=== PATIENT | female | born 1965 ===

== ENCOUNTER 2021-07-19 14:37 | Emergency (ER) | payer OTHER, SELFPAY ==
--- NOTE | ~2021-07-19 | CT_ITS ---
EXAMINATION: CT GI BLEED ABDOMEN PELVIS WITHOUT AND WITH IV CONTRAST CLINICAL INFORMATION: Lower abdominal pain and bloody stool with clots COMPARISON: None. TECHNIQUE: Noncontrast and contrast-enhanced (late arterial and delayed venous phase) helical CT acquisitions of the abdomen and pelvis. Axial images are presented at 0.6 mm and 5 mm slice thickness. Coronal and sagittal reformatted images were generated at the technologist workstation. Intravenous contrast: 100 mL of Omnipaque 350. This CT examination was performed using dose optimization techniques as appropriate, variously including the following: *Automated exposure control *Adjustment of mA and/or kV according to patient size (this includes techniques or standardized protocols for targeted exams where dose is matched to indication/reason for exam; i.e. extremities or head) *Use of iterative reconstruction technique DLP: 2015 mGy-cm. FINDINGS: LUNG BASES: Unremarkable. LIVER, GALLBLADDER, AND BILIARY TREE: The liver has normal size and shape. Liver parenchyma has attenuation of 35-40 HU on the noncontrast images, which suggests presence of mild steatosis. No focal hepatic lesion. The gallbladder is surgically absent. No intrahepatic or extrahepatic bile duct dilatation. PANCREAS: Normal. No evidence of pancreatic mass, edema or ductal dilatation. SPLEEN: Normal. ADRENAL GLANDS: Normal. KIDNEYS AND URETERS: The kidneys have normal size, shape, and attenuation. No hydroureteronephrosis, urolithiasis or perinephric edema. BLADDER: Unremarkable. BOWEL AND PERITONEUM: No dilated loops of bowel. No evidence of active contrast extravasation into the lumen of the stomach, small bowel or colon. There is mild prominence of a rectal vein in the left lateral/posterolateral rectal wall. Internal hemorrhoids could be a source of bleeding. However, this CT imaging exam shows no active bleeding into the lumen of the rectum. No focal bowel wall thickening, mesenteric fat stranding or free fluid. The appendix is normal. No pneumoperitoneum. ABDOMINAL WALL: Prior umbilical hernia repair. LYMPH NODES: No pathologic sized lymph nodes in the abdomen or pelvis. No inguinal lymphadenopathy. VASCULATURE: Abdominal aorta is normal in caliber. Inferior vena cava is normal. PELVIC VISCERA: Leiomyomatous uterus has lobulated contour. There appears to be a small tubal ligation ring of the right adnexa. 1.7 cm follicle or simple cyst of the right ovary is almost certainly benign. No imaging follow-up is recommended. There are several small follicles or small cysts of the left ovary, largest 1.5 cm. No suspicious adnexal lesion. No pelvic free fluid. MUSCULOSKELETAL: Mild and moderate multilevel discovertebral degenerative changes of the lower thoracic spine. Facet arthropathy lumbar spine is worst bilaterally at L4-L5 and on the left at L5-S1. There is is 0.3 cm of degenerative anterolisthesis of L4 on L5. No suspicious bone lesions. CT/CT gi bleed abd pel wo/w con IMPRESSION: * No CT imaging evidence of an active upper or lower gastrointestinal bleed. * Mildly dilated rectal vein (internal hemorrhoid) of the left lateral/posterolateral rectal wall could be a source of bleeding. However, there is no visible contrast extravasation into the rectal lumen. * Leiomyomatous uterus.
[2021-07-19 15:47] VITALS: BP 123/70; PULSE 84; RESP 16; TEMP 36.6; O2SAT 97; BMI 35.5
[2021-07-19 16:18] LABS: Basophils Percent Auto 0.4 % (0-2); Eosinophils Absolute Auto 0.2 X10*3/uL (0.0-0.4); Hematocrit 37.6 % (37-47); Hemoglobin 11.9 g/dl (12.0-16.0); Imm Gran Abs Auto 0.02 X10*3/uL (0.00-0.03); Imm Gran Pct Auto 0.3 % (0.0-0.4); Lymphocytes Absolute Auto 2.4 X10*3/uL (1.2-4.9); MANUAL DIFF FLAG NO; Mean Corpuscular HGB Conc 31.6 g/dl (31.0-35.0); Mean Corpuscular Hemoglobin 26.5 pg (27.0-33.0); Mean Corpuscular Volume 83.7 fL (80-98); Mean Platelet Volume 9.5 fL (9.4-12.3); Monocytes Absolute Auto 0.5 X10*3/uL (0.1-1.2); Monocytes Percent Auto 7.8 % (2-11); Neutrophils Absolute Auto 3.7 X10*3/uL (2.0-8.3); Neutrophils Percent Auto 53.5 % (45-73); Platelet Count 268 X10*3/uL (160-400); Red Blood Count 4.49 X10*6/uL (4.20-5.50); Red Cell Distribution Width 15.3 % (11.0-16.0); White Blood Count 6.9 X10*3/uL (4.8-10.8)
--- NOTE | 2021-07-19 16:18 | ED_ITS ---
HPI - General Adult General Chief complaint: General Medical Stated complaint: RECTAL BLEEDING HEAVY Time Seen by Provider: 07/19/21 15:47 Source: patient Mode of arrival: ambulatory Limitations: no limitations History of Present Illness HPI narrative: 56 y/o female with history of asthma, GERD, history of multiple umbilical hernia repairs, hx tubal ligation, s/p cholecystectomy who presents with 2 weeks of bloody bowel movements. She reports no history of GI bleed in the past and she is not on anticogaulation. She has been having 2-3 maroon colored bloody stools each day. Today she had about 2 cups of liquid dark red stool with clots and she was dizzy. She had no episodes of dizziness in the last 2 weeks until today and the volume as not as much as today. She also started having lower abdominal pain and cramping today along with bloating and distention. No vomiting, nausea, fevers, rectal pain. No chest pain or SOB. MD complaint: bloody bowel movements Onset (ago): week(s) (2) Location: abdomen Radiation: non-radiation Severity: moderate Severity scale (1-10): 7 Quality: sharp Pain Consistency: intermittent Relieving factors: none Exacerbating factors: none Associated symptoms: denies other symptoms Treatments prior to arrival: none Related Data Previous Rx's Medication Instructions Recorded hydrocortisone 1 %-pramoxine 1 % 1 appl ME QID #10 g 07/19/21 rectal foam (Proctofoam HC) Allergies Allergy/AdvReac Type Severity Reaction Status Date / Time ciprofloxacin [From Cipro] Allergy Unknown Verified 07/19/21 15:54 Penicillins Allergy Unknown Verified 07/19/21 15:54 Review of Systems Review of Systems: Constitutional: No Fever, No Chills ENT/Mouth: No sore throat, No Rhinorrhea, No Swallowing Difficulty Cardiovascular: No Chest Pain, No SOB, No Orthopnea, No Edema Respiratory: No Cough, No Sputum, No Wheezing, No dyspnea Gastrointestinal: No Nausea, No Vomiting, No Diarrhea, + abdominal Pain, + Hem atochezia, No Melena Genitourinary: No Dysuria, No Urinary Frequency, No Hematuria Musculoskeletal: No joint pain, No Myalgias Skin: No Skin Lesions, No rash Neuro: No Weakness, No Numbness, + Dizziness, No Headache Psych: No Anxiety/Panic, No Depression Heme/Lymph: No Bruising, No Lymphadenopathy Endocrine: No Polyuria, No Polydipsia [facility] Past Medical History Medical History (Updated 07/19/21 @ 17:47 by MELINDA Au) Asthma Hemorrhoid Surgical History (Updated 07/19/21 @ 15:50 by Oneyda Damon RN) H/O hernia repair H/O tubal ligation Social History Social History Advance Directives: No Advance Directives Information Provided: No Physical Exam Vital Signs: Vital Signs: Last Vital Signs Temp 97.9 F 07/19/21 15:47 Pulse 84 07/19/21 15:47 Resp 16 07/19/21 15:47 BP 123/70 07/19/21 15:47 Pulse Ox 97 07/19/21 15:47 Body Mass Index 35.5 Appearance: Alert. Oriented X3. No acute distress. Eyes: Pupils equal, round and reactive to light. ENT: Pharynx normal. Neck: Normal inspection. Neck supple. CVS: Normal heart rate and rhythm. Pulses normal. Respiratory: No respiratory distress. Breath sounds normal. Abdomen: Obese, Soft with mild lower abdominal tenderness to deep palpation. +BS x4 Skin: Skin warm and dry. Normal skin color. Normal skin turgor. No rashes. Extremities: No lower extremity edema. Neuro: Oriented X 3. No motor deficit. No sensory deficit. Course Course Course Narrative: 56 y/o female presenting with LGIB and dizziness, no other signs or symptoms of acute blood loss anemia. Will check CBC, coags, LFTs and get CT abd/pelvis GI bleed protocol to look for active GI bleeding given her large volume bloody BM was this afternoon. Reevaluation(s) Reevaluation #1: Crit is 37. No active bleeding in the 3 hours the patient has b een in the ED. VS are stable, not tachycardic. Reevaluation #2: CT showing no active GI bleed. Prominant internal hemorrhoid likely the source. Counseled on results and management. Will start proctofoam and have her f/u with GI. Stable for d/c home. Medical Decision Making Lab Data Result diagrams: 07/19/21 16:13 07/19/21 16:13 Labs: Lab Results 07/19/21 07/19/21 07/19/21 Range/Units 16:13 16:13 16:13 WBC 6.9 (4.8-10.8) X10*3/uL RBC 4.49 (4.20-5.50) X10*6/uL Hgb 11.9 L (12.0-16.0) g/dl Hct 37.6 (37-47) % MCV 83.7 (80-98) fL MCH 26.5 L (27.0-33.0) pg MCHC 31.6 (31.0-35.0) g/dl RDW 15.3 (11.0-16.0) % Plt Count 268 (160-400) X10*3/uL MPV 9.5 (9.4-12.3) fL Immature Gran % (Auto) 0.3 (0.0-0.4) % Neut % (Auto) 53.5 (45-73) % Lymph % (Auto) 35.0 (20-40) % [place] % (Auto) 7.8 (2-11) % Eos % (Auto) 3.0 (0-4) % Baso % (Auto) 0.4 (0-2) % Lymph # (Auto) 2.4 (1.2-4.9) X10*3/uL [place] # (Auto) 0.5 (0.1-1.2) X10*3/uL Eos # (Auto) 0.2 (0.0-0.4) X10*3/uL Baso # (Auto) 0.0 (0.0-0.2) X10*3/uL Abs Immat Gran (auto) 0.02 (0.00-0.03) X10*3/uL Absolute Neuts (auto) 3.7 (2.0-8.3) X10*3/uL Absolute Nucleated RBC 0.000 (0.0-0.012) X10*3/uL Nucleated RBC % (auto) 0.0 (0.0-0.2) /100WBC PT 11.8 (9.9-13.0) SEC INR 1.0 (0.9-1.1) APTT 32.3 (24.1-38.0) SEC Sodium 138 (135-145) mmol/L Potassium 4.1 (3.3-5.1) mmol/L Chloride 106 (96-108) mmol/L Carbon Dioxide 27 (22-29) mmol/L Anion Gap 9 L (12-20) BUN 11 (9-16) mg/dL Creatinine 1.23 (0.5-1.4) mg/dL Estim Creat Clear Calc 62.3 Estimated GFR 46 Random Glucose 100 (60-115) mg/dL Calcium 8.9 (8.4-10.2) mg/dL Magnesium 2.0 (1.6-2.6) mg/dL Total Bilirubin 0.2 (0.0-1.0) mg/dL Direct Bilirubin < 0.2 (0.0-0.5) mg/dL AST 16 (5-31) U/L ALT 16 (0-31) U/L Alkaline Phosphatase 72 (39-117) U/L Total Protein 6.0 L (6.5-8.0) g/dL Albumin 3.7 (3.5-5.0) g/dL Stool Occult Blood (NEGATIVE) Blood Type Antibody Screen 07/19/21 07/19/21 Range/Units 16:40 16:40 WBC (4.8-10.8) X10*3/uL RBC (4.20-5.50) X10*6/uL Hgb (12.0-16.0) g/dl Hct (37-47) % MCV (80-98) fL MCH (27.0-33.0) pg MCHC (31.0-35.0) g/dl RDW (11.0-16.0) % Plt Count (160-400) X10*3/uL MPV (9.4-12.3) fL Immature Gran % (Auto) (0.0-0.4) % Neut % (Auto) (45-73) % Lymph % (Auto) (20-40) % [place] % (Auto) (2-11) % Eos % (Auto) (0-4) % Baso % (Auto) (0-2) % Lymph # (Auto) (1.2-4.9) X10*3/uL [place] # (Auto) (0.1-1.2) X10*3/uL Eos # (Auto) (0.0-0.4) X10*3/uL Baso # (Auto) (0.0-0.2) X10*3/uL Abs Immat Gran (auto) (0.00-0.03) X10*3/uL Absolute Neuts (auto) (2.0-8.3) X10*3/uL Absolute Nucleated RBC (0.0-0.012) X10*3/uL Nucleated RBC % (auto) (0.0-0.2) /100WBC PT (9.9-13.0) SEC INR (0.9-1.1) APTT (24.1-38.0) SEC Sodium (135-145) mmol/L Potassium (3.3-5.1) mmol/L Chloride (96-108) mmol/L Carbon Dioxide (22-29) mmol/L Anion Gap (12-20) BUN (9-16) mg/dL Creatinine (0.5-1.4) mg/dL Estim Creat Clear Calc Estimated GFR Random Glucose (60-115) mg/dL Calcium (8.4-10.2) mg/dL Magnesium (1.6-2.6) mg/dL Total Bilirubin (0.0-1.0) mg/dL Direct Bilirubin (0.0-0.5) mg/dL AST (5-31) U/L ALT (0-31) U/L Alkaline Phosphatase (39-117) U/L Total Protein (6.5-8.0) g/dL Albumin (3.5-5.0) g/dL Stool Occult Blood POSITIVE (NEGATIVE) Blood Type O Positive Antibody Screen NEGATIVE Discharge Plan Discharge Clinical Impression: Gastrointestinal bleeding, lower, Hemorrhoids Patient Disposition: Home, Self-Care Instructions: Hydrocortisone (Into the rectum), Gastrointestinal Bleeding (ED) Additional Instructions: Your blood counts are stable. Your CT scan did not show any active bleeding there was prominence of a rectal hemorrhoid which is likely the source of your bleeding. Recommend using the prescribed rectal suppositories as directed to help treat this. Increase your fluid intake. Recommend colace stool softners to keep your stool very soft. Continue high fiber diet. Follow up with your GI doctor next week (or you can call ours, name and number listed below) If you develop new or worsening symptoms call 911 or come back to the ER for further evaluation. Prescriptions: New Proctofoam HC 1-1 % foam 1 appl ME QID Qty: 10 RF: 1 Referrals: Sumit Summers [Physician] - 2 days (LGIB) Stand Alone Forms: Work/School Release
[2021-07-19 16:24] LABS: Prothrombin Time 11.8 SEC (9.9-13.0)
[2021-07-19 16:27] LABS: Partial Thromboplastin Time 32.3 SEC (24.1-38.0)
[2021-07-19 16:34] LABS: Alanine Aminotransferase 16 U/L (0-31); Albumin Level 3.7 g/dL (3.5-5.0); Alkaline Phosphatase 72 U/L (39-117); Anion Gap 9 (12-20); Aspartate Amino Transferase 16 U/L (5-31); Bilirubin Direct < 0.2 mg/dL (0.0-0.5); Bilirubin Total 0.2 mg/dL (0.0-1.0); Blood Urea Nitrogen 11 mg/dL (9-16); Calcium 8.9 mg/dL (8.4-10.2); Carbon Dioxide 27 mmol/L (22-29); Chloride 106 mmol/L (96-108); Creatinine Clr Calc Pharmacy 62.3; Estimated Glomerular Filt Rate 46; Glucose Random 100 mg/dL (60-115); Potassium 4.1 mmol/L (3.3-5.1); Sodium 138 mmol/L (135-145)
[2021-07-19 16:47] LABS: OBS Int Ctl Valid YES; OBS1 POSITIVE (NEGATIVE)
[2021-07-19] MEDS: iohexoL 350 MG/ML 100 ML INFUS..BTL IV (17:03)
== END 2021-07-19 18:00 | disposition home or self-care (01) ==
PROVIDERS: Physician Assistant; Emergency Provider Emergency Medicine
DX: K92.2 Gastrointestinal hemorrhage, unspecified (principal); K64.9 Unspecified hemorrhoids; R10.30 Lower abdominal pain, unspecified; R42 Dizziness and giddiness; Z79.899 Other long term (current) drug therapy
CPT/HCPCS: 36415; 74178; 80048; 80076; 82272; 83735; 85025; 85610; 85730; 86850; 86900; 86901; 99284; Q9967

== ENCOUNTER 2022-01-27 16:50 | Emergency (ER) | payer OTHER, SELFPAY ==
[2022-01-27 17:31] VITALS: BP 132/71; PULSE 97; RESP 18; TEMP 36.8; O2SAT 97; BMI 35.2
--- NOTE | 2022-01-27 17:35 | ED_ITS ---
HPI - General Adult General Chief complaint: Abdominal Pain <MELINDA Escudero - Last Filed: 01/28/22 08:13> Stated complaint: abd pain/diarrhea/vomiting <MELINDA Escudero - Last Filed: 01/28/22 08:13> Time Seen by Provider: 01/27/22 17:34 <MELINDA Escudero - Last Filed: 01/28/22 08:13> Related Data Home medications: Previous Rx's Medication Instructions Recorded hydrocortisone 1 %-pramoxine 1 % 1 appl OR QID #10 g 07/19/21 rectal foam (Proctofoam HC) hydrocortisone 1 %-pramoxine 1 % 1 appl OR QID #10 g 07/19/21 rectal foam (Proctofoam HC) loperamide 2 mg capsule (Imodium 2 mg PO Q6H PRN #10 cap 01/27/22 A-D) metronidazole 500 mg tablet 500 mg PO TID 7 Days #21 tab 01/27/22 ondansetron 4 mg disintegrating 4 mg PO Q6-8H PRN #7 tab 01/27/22 tablet <MELINDA Escudero - Last Filed: 01/28/22 08:13> Allergies/adverse reactions: Allergies Allergy/AdvReac Type Severity Reaction Status Date / Time ciprofloxacin [From Cipro] Allergy Unknown Verified 07/19/21 15:54 Penicillins Allergy Unknown Verified 07/19/21 15:54 <MELINDA Escudero - Last Filed: 01/28/22 08:13> [facility] Past Medical History Medical History: Medical History Asthma Hemorrhoid <MELINDA Escudero - Last Filed: 01/28/22 08:13> Surgical History: Surgical History H/O hernia repair H/O tubal ligation <MELINDA Escudero - Last Filed: 01/28/22 08:13> Social History Social History: Social History Advance Directives: No Advance Directives Information Provided: No Patient : No <MELINDA Escudero - Last Filed: 01/28/22 08:13> Physical Exam ED Vital Signs: Vital Signs - 24 hr 01/27/22 17:31 Temperature 98.2 F Pulse Rate 97 Respiratory Rate 18 Blood Pressure 132/71 Pulse Oximetry 97 BMI result Body Mass Index 35.2 <MELINDA Escudero - Last Filed: 01/28/22 08:13> Course Course Course Narrative: Rapid medical screening. Patient presented for abdominal pain and diarrhea that is watery. 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 labs, stool culture, covid, and influenza ordered. patient is well appearing <MELINDA Escudero - Last Filed: 01/28/22 08:13> Medical Decision Making Lab Data Result diagrams: : 01/27/22 17:49 01/27/22 17:49 <MELINDA Escudero - Last Filed: 01/28/22 08:13> Labs: Lab Results 01/27/22 01/27/22 01/27/22 Range/Units 17:49 17:49 17:49 WBC 10.3 (4.8-10.8) X10*3/uL RBC 5.05 (4.20-5.50) X10*6/uL Hgb 14.3 (12.0-16.0) g/dl Hct 43.8 (37.0-47.0) % MCV 86.7 (80.0-98.0) fL MCH 28.3 (27.0-33.0) pg MCHC 32.6 (31.0-35.0) g/dl RDW 14.8 (11.0-16.0) % Plt Count 298 (160-400) X10*3/uL MPV 9.5 (9.4-12.3) fL Immature Gran % (Auto) 0.2 (0.0-0.4) % Neut % (Auto) 49.0 (45-73) % Lymph % (Auto) 24.1 (20-40) % [place] % (Auto) 6.6 (2-11) % Eos % (Auto) 19.8 H (0-4) % Baso % (Auto) 0.3 (0-2) % Lymph # (Auto) 2.5 (1.2-4.9) X10*3/uL [place] # (Auto) 0.7 (0.1-1.2) X10*3/uL Eos # (Auto) 2.0 H (0.0-0.4) X10*3/uL Baso # (Auto) 0.0 (0.0-0.2) X10*3/uL Abs Immat Gran (auto) 0.02 (0.00-0.03) X10*3/uL Absolute Neuts (auto) 5.0 (2.0-8.3) x10*3/uL Absolute Nucleated RBC 0.000 (0.0-0.012) X10*3/uL Nucleated RBC % (auto) 0.0 (0.0-0.2) /100WBC Smear Tech's Comments VERIFIED Sodium 141 (135-145) mmol/L Potassium 4.4 (3.3-5.1) mmol/L Chloride 108 (96-108) mmol/L Carbon Dioxide 27 (22-29) mmol/L Anion Gap 10 L (12-20) BUN 12 (9-16) mg/dL Creatinine 1.30 (0.5-1.4) mg/dL Estim Creat Clear Calc 58.7 Estimated GFR 43 Random Glucose 109 (60-115) mg/dL Calcium 9.9 D (8.4-10.2) mg/dL Total Bilirubin 0.3 (0.0-1.0) mg/dL Direct Bilirubin < 0.2 (0.0-0.5) mg/dL AST 17 (5-31) U/L ALT 19 (0-31) U/L Alkaline Phosphatase 84 (39-117) U/L Total Protein 6.9 (6.5-8.0) g/dL Albumin 4.2 (3.5-5.0) g/dL Lipase 39 (8-78) U/L Beta HCG, Quant < 2 mIU/mL Urine Color Urine Appearance Urine pH (5.0-8.0) Ur Specific [place] (1.005-1.025) Urine Protein (NEG-TRACE) MG/DL Urine Glucose (UA) (NEG) MG/DL Urine Ketones (NEG) MG/DL Urine Blood (NEG) Urine Nitrite (NEG) Ur Leukocyte Esterase (NEG) Urine RBC (0) /HPF Urine WBC (0-4) /HPF Ur Squamous Epith Cells /LPF Calcium Oxalate Crystal /LPF Urine Bacteria /LPF Urine Mucus /LPF Urine Test (NEGATIVE) Stool Leukocytes, Qual (NEGATIVE) C. difficile Tox B Gene (Negative) COVID-19 ([facility]ITAL) (Negative) COVID-19 Clin Com Influenza Type A (BARBARA) Negative (Negative) Influenza Type B (BARBARA) Negative (Negative) Influenza A & B Note See Note 01/27/22 01/27/22 01/27/22 Range/Units 17:49 18:06 18:06 WBC (4.8-10.8) X10*3/uL RBC (4.20-5.50) X10*6/uL Hgb (12.0-16.0) g/dl Hct (37.0-47.0) % MCV (80.0-98.0) fL MCH (27.0-33.0) pg MCHC (31.0-35.0) g/dl RDW (11.0-16.0) % Plt Count (160-400) X10*3/uL MPV (9.4-12.3) fL Immature Gran % (Auto) (0.0-0.4) % Neut % (Auto) (45-73) % Lymph % (Auto) (20-40) % [place] % (Auto) (2-11) % Eos % (Auto) (0-4) % Baso % (Auto) (0-2) % Lymph # (Auto) (1.2-4.9) X10*3/uL [place] # (Auto) (0.1-1.2) X10*3/uL Eos # (Auto) (0.0-0.4) X10*3/uL Baso # (Auto) (0.0-0.2) X10*3/uL Abs Immat Gran (auto) (0.00-0.03) X10*3/uL Absolute Neuts (auto) (2.0-8.3) x10*3/uL Absolute Nucleated RBC (0.0-0.012) X10*3/uL Nucleated RBC % (auto) (0.0-0.2) /100WBC Smear Tech's Comments Sodium (135-145) mmol/L Potassium (3.3-5.1) mmol/L Chloride (96-108) mmol/L Carbon Dioxide (22-29) mmol/L Anion Gap (12-20) BUN (9-16) mg/dL Creatinine (0.5-1.4) mg/dL Estim Creat Clear Calc Estimated GFR Random Glucose (60-115) mg/dL Calcium (8.4-10.2) mg/dL Total Bilirubin (0.0-1.0) mg/dL Direct Bilirubin (0.0-0.5) mg/dL AST (5-31) U/L ALT (0-31) U/L Alkaline Phosphatase (39-117) U/L Total Protein (6.5-8.0) g/dL Albumin (3.5-5.0) g/dL Lipase (8-78) U/L Beta HCG, Quant mIU/mL Urine Color YELLOW Urine Appearance CLEAR Urine pH 6.0 (5.0-8.0) Ur Specific [place] 1.025 (1.005-1.025) Urine Protein NEG (NEG-TRACE) MG/DL Urine Glucose (UA) NEG (NEG) MG/DL Urine Ketones NEG (NEG) MG/DL Urine Blood 1+ H (NEG) Urine Nitrite NEG (NEG) Ur Leukocyte Esterase NEG (NEG) Urine RBC 1-4 (0) /HPF Urine WBC 0-2 (0-4) /HPF Ur Squamous Epith Cells 2+ /LPF Calcium Oxalate Crystal 2+ /LPF Urine Bacteria NONE /LPF Urine Mucus 4+ /LPF Urine Test NEGATIVE (NEGATIVE) Stool Leukocytes, Qual (NEGATIVE) C. difficile Tox B Gene (Negative) COVID-19 ([facility]ITAL) Negative (Negative) COVID-19 Clin Com See Note Influenza Type A (BARBARA) (Negative) Influenza Type B (BARBARA) (Negative) Influenza A & B Note 01/27/22 01/27/22 Range/Units 18:33 18:33 WBC (4.8-10.8) X10*3/uL RBC (4.20-5.50) X10*6/uL Hgb (12.0-16.0) g/dl Hct (37.0-47.0) % MCV (80.0-98.0) fL MCH (27.0-33.0) pg MCHC (31.0-35.0) g/dl RDW (11.0-16.0) % Plt Count (160-400) X10*3/uL MPV (9.4-12.3) fL Immature Gran % (Auto) (0.0-0.4) % Neut % (Auto) (45-73) % Lymph % (Auto) (20-40) % [place] % (Auto) (2-11) % Eos % (Auto) (0-4) % Baso % (Auto) (0-2) % Lymph # (Auto) (1.2-4.9) X10*3/uL [place] # (Auto) (0.1-1.2) X10*3/uL Eos # (Auto) (0.0-0.4) X10*3/uL Baso # (Auto) (0.0-0.2) X10*3/uL Abs Immat Gran (auto) (0.00-0.03) X10*3/uL Absolute Neuts (auto) (2.0-8.3) x10*3/uL Absolute Nucleated RBC (0.0-0.012) X10*3/uL Nucleated RBC % (auto) (0.0-0.2) /100WBC Smear Tech's Comments Sodium (135-145) mmol/L Potassium (3.3-5.1) mmol/L Chloride (96-108) mmol/L Carbon Dioxide (22-29) mmol/L Anion Gap (12-20) BUN (9-16) mg/dL Creatinine (0.5-1.4) mg/dL Estim Creat Clear Calc Estimated GFR Random Glucose (60-115) mg/dL Calcium (8.4-10.2) mg/dL Total Bilirubin (0.0-1.0) mg/dL Direct Bilirubin (0.0-0.5) mg/dL AST (5-31) U/L ALT (0-31) U/L Alkaline Phosphatase (39-117) U/L Total Protein (6.5-8.0) g/dL Albumin (3.5-5.0) g/dL Lipase (8-78) U/L Beta HCG, Quant mIU/mL Urine Color Urine Appearance Urine pH (5.0-8.0) Ur Specific [place] (1.005-1.025) Urine Protein (NEG-TRACE) MG/DL Urine Glucose (UA) (NEG) MG/DL Urine Ketones (NEG) MG/DL Urine Blood (NEG) Urine Nitrite (NEG) Ur Leukocyte Esterase (NEG) Urine RBC (0) /HPF Urine WBC (0-4) /HPF Ur Squamous Epith Cells /LPF Calcium Oxalate Crystal /LPF Urine Bacteria /LPF Urine Mucus /LPF Urine Test (NEGATIVE) Stool Leukocytes, Qual FEW: < 2/OIF (NEGATIVE) C. difficile Tox B Gene NEGATIVE (Negative) COVID-19 ([facility]ITAL) (Negative) COVID-19 Clin Com Influenza Type A (BARBARA) (Negative) Influenza Type B (BARBARA) (Negative) Influenza A & B Note <MELINDA Escudero - Last Filed: 01/28/22 08:13> Discharge Plan Discharge Clinical Impression: Gastroenteritis <MELINDA Escudero - Last Filed: 01/28/22 08:13> Patient Disposition: Home, Self-Care <MELINDA Escudero - Last Filed: 01/28/22 08:13> Instructions: Gastroenteritis (ED) <MELINDA Escudero - Last Filed: 01/28/22 08:13> Additional Instructions: Drink plenty of fluids Take Imodium for severe diarrhea not more than 3-4 tablets a day Take Flagyl 1 tablet 3 times a day for 7 days Follow with PCP if not better Will call you with stool culture results if any <MELINDA Escudero - Last Filed: 01/28/22 08:13> Prescriptions: New metronidazole 500 mg tablet 500 mg PO TID 7 Days Qty: 21 0RF loperamide [Imodium A-D] 2 mg capsule 2 mg PO Q6H PRN (Reason: loose stool) Qty: 10 0RF ondansetron 4 mg tablet,disintegrating 4 mg PO Q6-8H PRN (Reason: nausea and vomiting) Qty: 7 0RF No Action Proctofoam HC 1-1 % foam 1 appl OR QID Qty: 10 1RF Proctofoam HC 1-1 % foam 1 appl OR QID Qty: 10 0RF <MELINDA Escudero - Last Filed: 01/28/22 08:13> Interventions: ED Discharge Assessment Last Done: 01/27/22 21:19 <MELINDA Escudero - Last Filed: 01/28/22 08:13> Discharge Date/Time: 01/27/22 21:27 <MELINDA Escudero - Last Filed: 01/28/22 08:13>
[2022-01-27] MEDS: Ondansetron ODT 4 MG TAB.RAPDIS TRANSLINGU (17:39)
[2022-01-27 18:03] LABS: Basophils Percent Auto 0.3 % (0-2); Eosinophils Percent Auto 19.8 % (0-4); Hematocrit 43.8 % (37.0-47.0); Hemoglobin 14.3 g/dl (12.0-16.0); Imm Gran Abs Auto 0.02 X10*3/uL (0.00-0.03); Imm Gran Pct Auto 0.2 % (0.0-0.4); Lymphocytes Absolute Auto 2.5 X10*3/uL (1.2-4.9); Lymphocytes Percent Auto 24.1 % (20-40); MANUAL DIFF FLAG SCAN; Mean Corpuscular HGB Conc 32.6 g/dl (31.0-35.0); Mean Corpuscular Hemoglobin 28.3 pg (27.0-33.0); Mean Corpuscular Volume 86.7 fL (80.0-98.0); Mean Platelet Volume 9.5 fL (9.4-12.3); Monocytes Absolute Auto 0.7 X10*3/uL (0.1-1.2); Monocytes Percent Auto 6.6 % (2-11); Platelet Count 298 X10*3/uL (160-400); Red Blood Count 5.05 X10*6/uL (4.20-5.50); Red Cell Distribution Width 14.8 % (11.0-16.0); SCAN SMEAR FLAG 1; White Blood Count 10.3 X10*3/uL (4.8-10.8)
[2022-01-27 18:11] LABS: COVID-19 Test Negative (Negative); IDNOW Serial# 55D5AD1C
[2022-01-27 18:12] LABS: Influenza A Negative (Negative); Influenza B2 Negative (Negative)
[2022-01-27 18:13] LABS: Alanine Aminotransferase 19 U/L (0-31); Albumin Level 4.2 g/dL (3.5-5.0); Alkaline Phosphatase 84 U/L (39-117); Anion Gap 10 (12-20); Aspartate Amino Transferase 17 U/L (5-31); Bilirubin Direct < 0.2 mg/dL (0.0-0.5); Bilirubin Total 0.3 mg/dL (0.0-1.0); Blood Urea Nitrogen 12 mg/dL (9-16); Calcium 9.9 mg/dL (8.4-10.2); Carbon Dioxide 27 mmol/L (22-29); Chloride 108 mmol/L (96-108); Creatinine Clr Calc Pharmacy 58.7; Estimated Glomerular Filt Rate 43; Glucose Random 109 mg/dL (60-115); Lipase 39 U/L (8-78); Potassium 4.4 mmol/L (3.3-5.1); Sodium 141 mmol/L (135-145); Total Protein 6.9 g/dL (6.5-8.0)
[2022-01-27 18:19] LABS: HCG Quantitative < 2 mIU/mL
[2022-01-27 18:25] LABS: SLIDE REVIEW VERIFIED
[2022-01-27 18:31] LABS: Appearance Urine CLEAR; Color Urine YELLOW; Glucose Urine UA NEG (NEG); Leukocyte Esterase Urine NEG (NEG); Nitrite Urine NEG (NEG); Specific Gravity - Urine 1.025 (1.005-1.025); UACC Culture Trigger NO; UPreg QC Valid YES; Urine Blood 1+ (NEG); Urine Ketones NEG (NEG); Urine Pregnancy NEGATIVE (NEGATIVE); Urine Protein NEG (NEG-TRACE)
[2022-01-27 19:03] LABS: Mucus Urine 4+ /LPF; Squamous Epithelial Cell Urine 2+ /LPF; WBC Urine 0-2 /HPF (0-4)
[2022-01-27 19:04] LABS: Calcium Oxalate Crystals Urine 2+ /LPF
[2022-01-27 19:42] LABS: Leukocytes Stool Qualitative FEW: < 2/OIF (NEGATIVE)
--- NOTE | 2022-01-27 20:52 | ED.ABDPAIN ---
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 had some food outside consent having bloating feeling and multiple episodes of diarrhea seen in urgent care center given Bactrim patient took it for 1 week without much response no fever no chills has diffuse abdominal pain stool is watery without any significant order no other family member sick Related Data Previous Rx's Medication Instructions Recorded hydrocortisone 1 %-pramoxine 1 % 1 appl [place] QID #10 g 07/19/21 rectal foam (Proctofoam HC) hydrocortisone 1 %-pramoxine 1 % 1 appl [place] QID #10 g 07/19/21 rectal foam (Proctofoam HC) loperamide 2 mg capsule (Imodium 2 mg PO Q6H PRN #10 cap 01/27/22 A-D) metronidazole 500 mg tablet 500 mg PO TID 7 Days #21 tab 01/27/22 ondansetron 4 mg disintegrating 4 mg PO Q6-8H PRN #7 tab 01/27/22 tablet Allergies Allergy/AdvReac Type Severity Reaction Status Date / Time ciprofloxacin [From Cipro] Allergy Unknown Verified 07/19/21 15:54 Penicillins Allergy Unknown Verified 07/19/21 15:54 Review of Systems Review of Systems Yes all other systems are reviewed and are negative PMFSH Past Medical History Medical History Asthma Hemorrhoid Surgical History H/O hernia repair H/O tubal ligation Social History Social History Advance Directives: No Advance Directives Information Provided: No Patient : No Physical Exam ED Vital Signs: Vital Signs - 24 hr 01/27/22 17:31 Temperature 98.2 F Pulse Rate 97 Respiratory Rate 18 Blood Pressure 132/71 Pulse Oximetry 97 BMI result Body Mass Index 35.2 Appearance: Alert. Oriented X3. No acute distress. Eyes: No pallor/ icterus ENT: Pharynx normal. Oral Mucosa moist Neck: Normal inspection. Neck supple. CVS: Normal heart rate and rhythm. Pulses normal. Respiratory: No respiratory distress. Equal air entry bilateral, no wheezing/rales/rhonchi Abdomen: Soft diffuse tenderness no focal tenderness or guarding Bowel sounds are present, no mass palpable, no CVA tenderness Skin: Skin warm and dry. Normal skin color. Normal skin turgor. Extremities: No lower extremity edema. No calf tenderness Neuro: Oriented X 3. MDM - Abdominal Pain MDM Narrative Medical decision making narrative: Patient's symptoms likely gastroenteritis maybe giardiasis samples were sent for culture will give patient Flagyl and symptomatic treatment Lab Data Attestation: I reviewed the patient's lab results. Result diagrams: 01/27/22 17:49 01/27/22 17:49 Labs: Lab Results 01/27/22 01/27/22 01/27/22 Range/Units 17:49 17:49 17:49 WBC 10.3 (4.8-10.8) X10*3/uL RBC 5.05 (4.20-5.50) X10*6/uL Hgb 14.3 (12.0-16.0) g/dl Hct 43.8 (37.0-47.0) % MCV 86.7 (80.0-98.0) fL MCH 28.3 (27.0-33.0) pg MCHC 32.6 (31.0-35.0) g/dl RDW 14.8 (11.0-16.0) % Plt Count 298 (160-400) X10*3/uL MPV 9.5 (9.4-12.3) fL Immature Gran % (Auto) 0.2 (0.0-0.4) % Neut % (Auto) 49.0 (45-73) % Lymph % (Auto) 24.1 (20-40) % [place]s % (Auto) 6.6 (2-11) % Eos % (Auto) 19.8 H (0-4) % Baso % (Auto) 0.3 (0-2) % Lymph # (Auto) 2.5 (1.2-4.9) X10*3/uL [place]s # (Auto) 0.7 (0.1-1.2) X10*3/uL Eos # (Auto) 2.0 H (0.0-0.4) X10*3/uL Baso # (Auto) 0.0 (0.0-0.2) X10*3/uL Abs Immat Gran (auto) 0.02 (0.00-0.03) X10*3/uL Absolute Neuts (auto) 5.0 (2.0-8.3) x10*3/uL Absolute Nucleated RBC 0.000 (0.0-0.012) X10*3/uL Nucleated RBC % (auto) 0.0 (0.0-0.2) /100WBC Smear Tech's Comments VERIFIED Sodium 141 (135-145) mmol/L Potassium 4.4 (3.3-5.1) mmol/L Chloride 108 (96-108) mmol/L Carbon Dioxide 27 (22-29) mmol/L Anion Gap 10 L (12-20) BUN 12 (9-16) mg/dL Creatinine 1.30 (0.5-1.4) mg/dL Estim Creat Clear Calc 58.7 Estimated GFR 43 Random Glucose 109 (60-115) mg/dL Calcium 9.9 D (8.4-10.2) mg/dL Total Bilirubin 0.3 (0.0-1.0) mg/dL Direct Bilirubin < 0.2 (0.0-0.5) mg/dL AST 17 (5-31) U/L ALT 19 (0-31) U/L Alkaline Phosphatase 84 (39-117) U/L Total Protein 6.9 (6.5-8.0) g/dL Albumin 4.2 (3.5-5.0) g/dL Lipase 39 (8-78) U/L Beta HCG, Quant < 2 mIU/mL Urine Color Urine Appearance Urine pH (5.0-8.0) Ur Specific [place] (1.005-1.025) Urine Protein (NEG-TRACE) MG/DL Urine Glucose (UA) (NEG) MG/DL Urine Ketones (NEG) MG/DL Urine Blood (NEG) Urine Nitrite (NEG) Ur Leukocyte Esterase (NEG) Urine RBC (0) /HPF Urine WBC (0-4) /HPF Ur Squamous Epith Cells /LPF Calcium Oxalate Crystal /LPF Urine Bacteria /LPF Urine Mucus /LPF Urine Test (NEGATIVE) Stool Leukocytes, Qual (NEGATIVE) COVID-19 (SHITAL) (Negative) COVID-19 Clin Com Influenza Type A (BARBARA) Negative (Negative) Influenza Type B (BARBARA) Negative (Negative) Influenza A & B Note See Note 01/27/22 01/27/22 01/27/22 Range/Units 17:49 18:06 18:06 WBC (4.8-10.8) X10*3/uL RBC (4.20-5.50) X10*6/uL Hgb (12.0-16.0) g/dl Hct (37.0-47.0) % MCV (80.0-98.0) fL MCH (27.0-33.0) pg MCHC (31.0-35.0) g/dl RDW (11.0-16.0) % Plt Count (160-400) X10*3/uL MPV (9.4-12.3) fL Immature Gran % (Auto) (0.0-0.4) % Neut % (Auto) (45-73) % Lymph % (Auto) (20-40) % Stearns % (Auto) (2-11) % Eos % (Auto) (0-4) % Baso % (Auto) (0-2) % Lymph # (Auto) (1.2-4.9) X10*3/uL [place]s # (Auto) (0.1-1.2) X10*3/uL Eos # (Auto) (0.0-0.4) X10*3/uL Baso # (Auto) (0.0-0.2) X10*3/uL Abs Immat Gran (auto) (0.00-0.03) X10*3/uL Absolute Neuts (auto) (2.0-8.3) x10*3/uL Absolute Nucleated RBC (0.0-0.012) X10*3/uL Nucleated RBC % (auto) (0.0-0.2) /100WBC Smear Tech's Comments Sodium (135-145) mmol/L Potassium (3.3-5.1) mmol/L Chloride (96-108) mmol/L Carbon Dioxide (22-29) mmol/L Anion Gap (12-20) BUN (9-16) mg/dL Creatinine (0.5-1.4) mg/dL Estim Creat Clear Calc Estimated GFR Random Glucose (60-115) mg/dL Calcium (8.4-10.2) mg/dL Total Bilirubin (0.0-1.0) mg/dL Direct Bilirubin (0.0-0.5) mg/dL AST (5-31) U/L ALT (0-31) U/L Alkaline Phosphatase (39-117) U/L Total Protein (6.5-8.0) g/dL Albumin (3.5-5.0) g/dL Lipase (8-78) U/L Beta HCG, Quant mIU/mL Urine Color YELLOW Urine Appearance CLEAR Urine pH 6.0 (5.0-8.0) Ur Specific [place] 1.025 (1.005-1.025) Urine Protein NEG (NEG-TRACE) MG/DL Urine Glucose (UA) NEG (NEG) MG/DL Urine Ketones NEG (NEG) MG/DL Urine Blood 1+ H (NEG) Urine Nitrite NEG (NEG) Ur Leukocyte Esterase NEG (NEG) Urine RBC 1-4 (0) /HPF Urine WBC 0-2 (0-4) /HPF Ur Squamous Epith Cells 2+ /LPF Calcium Oxalate Crystal 2+ /LPF Urine Bacteria NONE /LPF Urine Mucus 4+ /LPF Urine Test NEGATIVE (NEGATIVE) Stool Leukocytes, Qual (NEGATIVE) COVID-19 (SHITAL) Negative (Negative) COVID-19 Clin Com See Note Influenza Type A (BARBARA) (Negative) Influenza Type B (BARBARA) (Negative) Influenza A & B Note 01/27/22 Range/Units 18:33 WBC (4.8-10.8) X10*3/uL RBC (4.20-5.50) X10*6/uL Hgb (12.0-16.0) g/dl Hct (37.0-47.0) % MCV (80.0-98.0) fL MCH (27.0-33.0) pg MCHC (31.0-35.0) g/dl RDW (11.0-16.0) % Plt Count (160-400) X10*3/uL MPV (9.4-12.3) fL Immature Gran % (Auto) (0.0-0.4) % Neut % (Auto) (45-73) % Lymph % (Auto) (20-40) % Stearns % (Auto) (2-11) % Eos % (Auto) (0-4) % Baso % (Auto) (0-2) % Lymph # (Auto) (1.2-4.9) X10*3/uL [place] # (Auto) (0.1-1.2) X10*3/uL Eos # (Auto) (0.0-0.4) X10*3/uL Baso # (Auto) (0.0-0.2) X10*3/uL Abs Immat Gran (auto) (0.00-0.03) X10*3/uL Absolute Neuts (auto) (2.0-8.3) x10*3/uL Absolute Nucleated RBC (0.0-0.012) X10*3/uL Nucleated RBC % (auto) (0.0-0.2) /100WBC Smear Tech's Comments Sodium (135-145) mmol/L Potassium (3.3-5.1) mmol/L Chloride (96-108) mmol/L Carbon Dioxide (22-29) mmol/L Anion Gap (12-20) BUN (9-16) mg/dL Creatinine (0.5-1.4) mg/dL Estim Creat Clear Calc Estimated GFR Random Glucose (60-115) mg/dL Calcium (8.4-10.2) mg/dL Total Bilirubin (0.0-1.0) mg/dL Direct Bilirubin (0.0-0.5) mg/dL AST (5-31) U/L ALT (0-31) U/L Alkaline Phosphatase (39-117) U/L Total Protein (6.5-8.0) g/dL Albumin (3.5-5.0) g/dL Lipase (8-78) U/L Beta HCG, Quant mIU/mL Urine Color Urine Appearance Urine pH (5.0-8.0) Ur Specific [place] (1.005-1.025) Urine Protein (NEG-TRACE) MG/DL Urine Glucose (UA) (NEG) MG/DL Urine Ketones (NEG) MG/DL Urine Blood (NEG) Urine Nitrite (NEG) Ur Leukocyte Esterase (NEG) Urine RBC (0) /HPF Urine WBC (0-4) /HPF Ur Squamous Epith Cells /LPF Calcium Oxalate Crystal /LPF Urine Bacteria /LPF Urine Mucus /LPF Urine Test (NEGATIVE) Stool Leukocytes, Qual FEW: < 2/OIF (NEGATIVE) COVID-19 ([facility]ITAL) (Negative) COVID-19 Clin Com Influenza Type A (BARBARA) (Negative) Influenza Type B (BARBRAA) (Negative) Influenza A & B Note Discharge Plan Discharge Clinical Impression: Gastroenteritis Patient Disposition: Home, Self-Care Instructions: Gastroenteritis (ED) Additional Instructions: Drink plenty of fluids Take Imodium for severe diarrhea not more than 3-4 tablets a day Take Flagyl 1 tablet 3 times a day for 7 days Follow with PCP if not better Will call you with stool culture results if any Prescriptions: New metronidazole 500 mg tablet 500 mg PO TID 7 Days Qty: 21 0RF loperamide [Imodium A-D] 2 mg capsule 2 mg PO Q6H PRN (Reason: loose stool) Qty: 10 0RF ondansetron 4 mg tablet,disintegrating 4 mg PO Q6-8H PRN (Reason: nausea and vomiting) Qty: 7 0RF No Action Proctofoam HC 1-1 % foam 1 appl [place] QID Qty: 10 1RF Proctofoam HC 1-1 % foam 1 appl [place] QID Qty: 10 0RF
[2022-01-27] MEDS: metroNIDAZOLE 500 MG TABLET PO (21:18)
[2022-01-27] MEDS: Loperamide HCl 2 MG CAPSULE PO (21:18)
[2022-01-27 22:03] LABS: CDiff Gene PCR NEGATIVE (Negative)
== END 2022-01-27 21:27 | disposition home or self-care (01) ==
PROVIDERS: Physician Assistant; Emergency Provider Internal Medicine
DX: K52.9 Noninfective gastroenteritis and colitis, unspecified (principal); Z79.899 Other long term (current) drug therapy; Z20.822 Contact with and (suspected) exposure to COVID-19
CPT/HCPCS: 36415; 80053; 81001; 81025; 82248; 83690; 84702; 85025; 87045; 87046; 87329; 87493; 87502; 87635; 89055; 99283

== ENCOUNTER 2023-04-05 18:28 | Emergency (ER) | payer OTHER, SELFPAY | END 2023-04-05 20:10 | disposition left against medical advice (07) | LOC: HO.ED 20:09 | PROVIDERS: Emergency Provider Emergency Medicine | DX: K62.5 Hemorrhage of anus and rectum (principal); M79.672 Pain in left foot ==